=== PATIENT | female | born 1955 | race Caucasian/White ===

== ENCOUNTER 2021-01-25 11:15 | Emergency (ER) | payer MEDICARE | END 2021-01-25 13:15 | disposition home or self-care (01) | LOC: ER1 11:15 | DX: M25.562 Pain in left knee (principal); E11.22 Type 2 diabetes mellitus with diabetic chronic kidney disease; I51.9 Heart disease, unspecified; N18.9 Chronic kidney disease, unspecified; W18.40XA Slipping, tripping and stumbling without falling, unspecified, initial encounter | CPT/HCPCS: 73564; 99283 ==

== ENCOUNTER → 2021-02-17 | Outpatient (CLI) | payer MEDICARE | LOC: KOH-I 15:00 | DX: M25.562 Pain in left knee (principal) | CPT/HCPCS: 73564 ==

== ENCOUNTER → 2021-08-11 | Outpatient (CLI) | payer MEDICARE | LOC: KOH-I 06-28 14:43 | DX: N18.32 Chronic kidney disease, stage 3b (principal); Z90.5 Acquired absence of kidney | CPT/HCPCS: 76775 ==